=== PATIENT | female | born 1940 | race Caucasian/White ===

== ENCOUNTER 2018-09-05 20:30 | Emergency (ER) | payer OTHER ==
--- OUTSIDE RECORDS SUMMARY | 2018-09-05 20:32 | XMS REPORT | Clinical Summary ---
:1940 Author Organization [facility] Address [address] [place] [id number] Care Team Providers Name Role Phone Asked, No Pcp Primary Care Provider Unavailable Allergies Active Allergy Reactions Severity Noted Date Comments Codeine GI Intolerance 09/07/2015 Meperidine GI Intolerance 09/07/2015 Penicillins GI Intolerance 09/07/2015 Medications Medication Sig Dispensed Refills Start Date End Date Status amLODIPine (NORVASC) 10 MG TK 1 T PO 0 11/14/2015 Active tablet QD levothyroxine (SYNTHROID, TK 1 T PO QD 2 11/14/2015 Active LEVOTHROID) 88 MCG tablet lisinopril-hydrochlorothiazi TK 1 T PO QD 1 11/14/2015 Active de (PRINZIDE,ZESTORETIC) 20-25 mg per tablet methylPREDNISolone (MEDROL TK UTD 0 08/30/2015 Active DOSEPACK) 4 mg tablet rosuvastatin (CRESTOR) 10 MG TK 1 T PO QD 1 11/14/2015 Active tablet Active Problems Problem Noted Date History of lumbar surgery 03/27/2016 Neurogenic claudication due to lumbar spinal stenosis 12/06/2015 Cervical spondylosis with radiculopathy 12/06/2015 Lumbar back pain with radiculopathy affecting right lower extremity 08/30/2015 Overview: Problem: Right greater than left upper extremity radiculopathy Plan: Recommend a trial of methylprednisolone. Follow with nonsteroidal anti- inflammatory medication as needed. Prescription for physical therapy. See back in a few weeks. Family History Medical History Relation Name Comments No Known Problems Father Cancer Mother Diabetes Mother Heart disease Mother Hypertension Mother Thyroid disease Mother Relation Name Status Comments Father Alive Mother Social History Tobacco Use Types Packs/Day Years Used Date Never Smoker Alcohol Use Drinks/Week oz/Week Comments Yes 3 Standard drinks or equivalent 1.8 Sex Assigned at Date Recorded Not on file Job Start Date Occupation Industry Not on file Not on file Not on file Travel History Travel Start Travel End No recent travel history available. Last Filed Vital Signs Not on file Plan of Treatment Health Maintenance Due Date Last Done Comments SHINGLES VACCINES (#1) 11/11/1989 65+ PNEUMOCOCCAL VACCINE (1 of 2 - PCV13) 11/11/2004 INFLUENZA VACCINE 10/01/2018 Results Not on fileafter 09/04/2017 Advance Directives Patient has advance care planning documents on file. For more information, please contact:Huber [id number] [place] [address]
[2018-09-05] MEDS ORDERED: ONDANSETRON 4 MG/2 ML VIAL ONE ×2 (21:23→23:12)
[2018-09-05] MEDS ORDERED: MORPHINE 2 MG/ML SYR ONE ×2 (21:23→23:32)
[2018-09-05 21:24] LABS: Absolute Lymphocytes (CBC) 2.2 K/uL (0.7-4.9); Basophils % 0.8 % (0-1.3); Eosinophils % 0.4 % (0-4.4); Hematocrit 44.6 % (36.0-45.0); Lymphocytes % 14.8 % (15.3-44.8); MPV 8.6 fL (7.6-11.3); Monocytes % 8.2 % (3.3-12.3); RBC Red Blood Cell Count 5.01 M/uL (3.86-4.86)
[2018-09-05] MEDS ORDERED: NA CHLORIDE 0.9% 500 ML ONE (21:24)
[2018-09-05] MEDS ORDERED: NA CHLORIDE 0.9% 1,000 ML ONE (21:24)
[2018-09-05 21:47] LABS: Potassium 4.1 mmol/L (3.5-5.1)
--- NOTE | 2018-09-05 23:29 | ER ---
Nurse's Notes [facility] Name: Debbie Birch Age: 77 yrs Sex: Female : 1940 Arrival Date: 09/05/2018 Time: 20:31 Bed 6 Private MD: Gabriella Moran Diagnosis: Chronic back pain. Possible prolapsed intervertebral disc. Vomiting Presentation: 09/05 20:30 Presenting complaint: Patient states: that she has been having nausea and vomiting all fc day. Also having right back and right thigh pain which started some time back but worse today. Has seen PCP for this and rec'd steroid injection and Medrol dose pack which pt is taking currently. Also on Nystatin for thrush. Transition of care: patient was not received from another setting of care. Onset of symptoms was September 05, 2018. Risk Assessment: Do you want to hurt yourself or someone else? Patient reports no desire to harm self or others. Initial Sepsis Screen: Does the patient meet any 2 criteria? No. Patient's initial sepsis screen is negative. Does the patient have a suspected source of infection? No. Patient's initial sepsis screen is negative. Care prior to arrival: None. 20:30 Method Of Arrival: Wheelchair fc 20:30 Acuity: BILL 3 fc Historical: - Allergies: 20:45 PENICILLINS; fc 20:45 Codeine; fc 20:45 Demerol; fc - Home Meds: 20:45 lisinopril-hydrochlorothiazide 20-12.5 mg oral tab 2 tab once daily [Active]; meloxicam fc 15 mg oral tab 1 tab once daily [Active]; levothyroxine 88 mcg tab 1 tab once daily [Active]; rosuvastatin 10 mg oral tab 1 tab nightly [Active]; Robaxin 500 mg Oral tab 1 tabs three times a day [Active]; gabapentin 300 mg oral cap 1 cap 3 times per day [Active]; doxazosin 1 mg oral tab prn sbp > 150/90 [Active]; - PMHx: 20:45 Hypertension; High Cholesterol; Back pain; Hypothyroidism; Arthritis; fc - PSHx: 20:45 back surg x 2; fc - Immunization history:: Last tetanus immunization: unknown. - Social history:: Smoking status: Patient/guardian denies using tobacco, Patient uses alcohol, occasionally. - Ebola Screening: : Patient negative for fever greater than or equal to 101.5 degrees Fahrenheit, and additional compatible Ebola Virus Disease symptoms Patient denies exposure to infectious person Patient denies travel to an Ebola-affected area in the 21 days before illness onset. Screenin:30 Abuse screen: Denies threats or abuse. Nutritional screening: No deficits noted. fc Tuberculosis screening: No symptoms or risk factors identified. Assessment: 20:44 General: Appears in no apparent distress. comfortable. Pain: Complains of pain in right ch low back, right hip, right upper thigh and right quadriceps Pain currently is 10 out of 10 on a pain scale. Neuro: No deficits noted. Respiratory: Airway is patent Respiratory effort is even, unlabored, Breath sounds are clear bilaterally. GI: Abdomen is round non-distended, Pt is actively vomiting undigested food, Bowel sounds present X 4 quads. Abd is soft and non tender X 4 quads. Reports nausea, vomiting. : No signs and/or symptoms were reported regarding the genitourinary system. EENT: No signs and/or symptoms were reported regarding the EENT system. Derm: Skin is fragile, is thin, with poor turgor Skin is pink, warm \T\ dry. Musculoskeletal: Capillary refill < 3 seconds, in bilateral fingers. Range of motion: limited in right hip pt states she has chronic pain in her R hip. 21:29 Reassessment: Patient appears in no apparent distress at this time. Patient and/or ch family updated on plan of care and expected duration. Pain level reassessed. Patient is alert, oriented x 3, equal unlabored respirations, skin warm/dry/pink. pt stops vomiting, states she feels a little better. 23:12 Reassessment: Patient appears in no apparent distress at this time. Patient and/or ch family updated on plan of care and expected duration. Pain level reassessed. Patient is alert, oriented x 3, equal unlabored respirations, skin warm/dry/pink. pt c/o increase in pain and increase in nausea. ekg performed, urine dip, pt will be medicated again. 23:34 Reassessment: Patient appears in no apparent distress at this time. Patient and/or ch family updated on plan of care and expected duration. Pain level reassessed. Patient is alert, oriented x 3, equal unlabored respirations, skin warm/dry/pink. pt brief changed. 23:51 Reassessment: Patient appears in no apparent distress at this time. Patient and/or ch family updated on plan of care and expected duration. Pain level reassessed. Patient is alert, oriented x 3, equal unlabored respirations, skin warm/dry/pink. pt medicated for nausea, awaiting discharge. Vital Signs: 20:30 BP 164 / 77; Pulse 77; Resp 18; Temp 99.3(O); Pulse Ox 99% on R/A; Weight 58.97 kg (R); fc Height 5 ft. 1 in. (154.94 cm) (R); Pain 10/10; 21:29 BP 152 / 78; Pulse 72; Resp 16; Temp 98.8; Pulse Ox 99% on R/A; Pain 0/10; ch 23:12 BP 150 / 89; Pulse 80; Resp 14; Temp 98.8; Pulse Ox 99% on R/A; Pain 6/10; ch 23:51 BP 162 / 78; Pulse 72; Resp 14; Temp 98.7; Pulse Ox 99% on R/A; Pain 5/10; ch 20:30 Body Mass Index 24.56 (58.97 kg, 154.94 cm) ED Course: 20:30 Arm band placed on Patient placed in an exam room, on a stretcher. fc 20:30 Patient has correct armband on for positive identification. Placed in gown. Bed in low fc position. Call light in reach. Side rails up X2. surveillance system monitor on. Pulse ox on. NIBP on. 20:30 No provider procedures requiring assistance completed. fc 20:31 Patient arrived in ED. am2 20:31 Trav Mathias MD is Attending Physician. pkl 20:31 Gabriella Moran MD is Private Physician. am2 20:41 Triage completed. fc 20:43 Chata Wagoner, RN is Primary Nurse. ch 21:21 Initial lab(s) drawn, by ia, sent to lab. Inserted saline lock: 24 gauge in left ak1 forearm, using aseptic technique. Blood collected. 23:51 No apparent distress. Resting quietly. ch 23:51 IV discontinued, intact, bleeding controlled, No redness/swelling at site. Pressure ch dressing applied. 09/06 01:32 Primary Nurse role handed off by Chata Wagoner RN ch Administered Medications: 09/05 21:28 Drug: NS 0.9% 500 ml Route: IV; Rate: bolus; Site: left forearm; ch 21:28 Drug: NS 0.9% 1000 ml Route: IV; Rate: 100 ml/hr; Site: left forearm; ch 21:28 Drug: morphine 2 mg Route: IVP; Site: left forearm; ch 23:35 Follow up: Response: No adverse reaction ch 21:28 Drug: Zofran 4 mg Route: IVP; Site: left forearm; ch 23:35 Follow up: Response: No adverse reaction; Marked relief of symptoms ch 23:15 Drug: morphine 2 mg Route: IVP; Site: left forearm; ch 23:35 Follow up: Response: No adverse reaction ch 23:15 Drug: Zofran 4 mg Route: IVP; Site: left antecubital; ch 23:35 Follow up: Response: No adverse reaction; No change in condition ch 23:45 Drug: Phenergan 25 mg Route: IM; Site: right gluteus; Outcome: 23:29 Discharge ordered by MD. henley 09/06 00:00 Discharged to home via wheelchair, with family. Condition: improved Discharge instructions given to patient, family, Instructed on discharge instructions, follow up and referral plans. medication usage, Demonstrated understanding of instructions, follow-up care, medications, Prescriptions given X 2. 00:05 Patient left the ED. mt 01:33 Patient left the ED. Signatures: Chata Wagoner RN RN ch Lam, Pin, MD MD pkl Chretien, Felicia, RN RN fc Krenek, Amber, RN RN ak1 Moreno, Amanda am2 Thompson, Moriah mt
--- NOTE | 2018-09-05 23:29 | EDPHYS ---
Physician Documentation [facility] Name: Debbie Birch Age: 77 yrs Sex: Female : 1940 Arrival Date: 09/05/2018 Time: 20:31 Bed 6 Private MD: Gabriella Moran ED Physician Trav Mathias HPI: 09/05 20:55 This 77 yrs old Female presents to ER via Wheelchair with complaints of pkl Vomiting. 20:55 The patient presents with pain that is chronic. The symptoms are located in the low pkl back. Onset: The symptoms/episode began/occurred 1 week(s) ago, Saw PCP, given steroid injection and Medrol dose pack. Patient started nausea and vomiting today. Historical: - Allergies: 20:45 PENICILLINS; fc 20:45 Codeine; fc 20:45 Demerol; fc - Home Meds: 20:45 lisinopril-hydrochlorothiazide 20-12.5 mg oral tab 2 tab once daily [Active]; meloxicam fc 15 mg oral tab 1 tab once daily [Active]; levothyroxine 88 mcg tab 1 tab once daily [Active]; rosuvastatin 10 mg oral tab 1 tab nightly [Active]; Robaxin 500 mg Oral tab 1 tabs three times a day [Active]; gabapentin 300 mg oral cap 1 cap 3 times per day [Active]; doxazosin 1 mg oral tab prn sbp > 150/90 [Active]; - PMHx: 20:45 Hypertension; High Cholesterol; Back pain; Hypothyroidism; Arthritis; fc - PSHx: 20:45 back surg x 2; fc - Immunization history:: Last tetanus immunization: unknown. - Social history:: Smoking status: Patient/guardian denies using tobacco, Patient uses alcohol, occasionally. - Ebola Screening: : Patient negative for fever greater than or equal to 101.5 degrees Fahrenheit, and additional compatible Ebola Virus Disease symptoms Patient denies exposure to infectious person Patient denies travel to an Ebola-affected area in the 21 days before illness onset. ROS: 21:24 Eyes: Negative for injury, pain, redness, and discharge, ENT: Negative for injury, pkl pain, and discharge, Neck: Negative for injury, pain, and swelling, Cardiovascular: Negative for chest pain, palpitations, and edema, Respiratory: Negative for shortness of breath, cough, wheezing, and pleuritic chest pain. 21:24 Abdomen/GI: Positive for nausea and vomiting. 21:24 Back: Positive for pain with movement, of the lower back. 21:24 : Negative for urinary symptoms. 21:24 MS/extremity: Negative for pain, right thigh. 21:24 Skin: Negative for rash. 21:24 Neuro: Negative for altered mental status. Exam: 21:24 Head/Face: Normocephalic, atraumatic. Eyes: Pupils equal round and reactive to light, pkl extra-ocular motions intact. Lids and lashes normal. Conjunctiva and sclera are non-icteric and not injected. Cornea within normal limits. Periorbital areas with no swelling, redness, or edema. ENT: Nares patent. No nasal discharge, no septal abnormalities noted. Tympanic membranes are normal and external auditory canals are clear. Oropharynx with no redness, swelling, or masses, exudates, or evidence of obstruction, uvula midline. Mucous membranes moist. Neck: Trachea midline, no thyromegaly or masses palpated, and no cervical lymphadenopathy. Supple, full range of motion without nuchal rigidity, or vertebral point tenderness. No Meningismus. Chest/axilla: Normal chest wall appearance and motion. Nontender with no deformity. No lesions are appreciated. Cardiovascular: Regular rate and rhythm with a normal S1 and S2. No gallops, murmurs, or rubs. Normal PMI, no JVD. No pulse deficits. Respiratory: Lungs have equal breath sounds bilaterally, clear to auscultation and percussion. No rales, rhonchi or wheezes noted. No increased work of breathing, no retractions or nasal flaring. Abdomen/GI: Soft, non-tender, with normal bowel sounds. No distension or tympany. No guarding or rebound. No evidence of tenderness throughout. 21:24 Back: pain, that is moderate, of the lower back, Straight leg raises: right lower extremity illicits pain, at 30 degrees. 21:24 : Exam negative for acute changes. 21:24 Musculoskeletal/extremity: Exam is negative for acute changes. 21:24 Skin: Exam negative for rash. 21:24 Neuro: Orientation: appropriate for stated age, Mentation: is normal, Cranial nerves: grossly normal, Motor: is normal. Vital Signs: 20:30 BP 164 / 77; Pulse 77; Resp 18; Temp 99.3(O); Pulse Ox 99% on R/A; Weight 58.97 kg (R); fc Height 5 ft. 1 in. (154.94 cm) (R); Pain 10/10; 21:29 BP 152 / 78; Pulse 72; Resp 16; Temp 98.8; Pulse Ox 99% on R/A; Pain 0/10; ch 23:12 BP 150 / 89; Pulse 80; Resp 14; Temp 98.8; Pulse Ox 99% on R/A; Pain 6/10; ch 23:51 BP 162 / 78; Pulse 72; Resp 14; Temp 98.7; Pulse Ox 99% on R/A; Pain 5/10; ch 20:30 Body Mass Index 24.56 (58.97 kg, 154.94 cm) fc MDM: 20:31 Patient medically screened. pkl 23:27 Data reviewed: vital signs, nurses notes, lab test result(s). pk 09/05 20:53 Order name: CBC with Diff; Complete Time: 21:55 pkl 09/05 20:53 Order name: Chem 7; Complete Time: 21:55 pk 09/05 23:11 Order name: Urine Microscopic Only; Complete Time: 01:31 mt 09/05 23:12 Order name: Urine Dipstick--Ancillary (enter results) wi 09/05 23:44 Order name: Urine Culture [facility] 09/05 23:14 Order name: EKG; Complete Time: 23:20 09/05 23:14 Order name: EKG - Nurse/Tech; Complete Time: 23:16 ch Administered Medications: 21:28 Drug: NS 0.9% 500 ml Route: IV; Rate: bolus; Site: left forearm; ch 21:28 Drug: NS 0.9% 1000 ml Route: IV; Rate: 100 ml/hr; Site: left forearm; ch 21:28 Drug: morphine 2 mg Route: IVP; Site: left forearm; ch 23:35 Follow up: Response: No adverse reaction ch 21:28 Drug: Zofran 4 mg Route: IVP; Site: left forearm; ch 23:35 Follow up: Response: No adverse reaction; Marked relief of symptoms ch 23:15 Drug: morphine 2 mg Route: IVP; Site: left forearm; ch 23:35 Follow up: Response: No adverse reaction 23:15 Drug: Zofran 4 mg Route: IVP; Site: left antecubital; ch 23:35 Follow up: Response: No adverse reaction; No change in condition 23:45 Drug: Phenergan 25 mg Route: IM; Site: right gluteus; ch Disposition: 09/05/18 23:29 Discharged to Home. Impression: Chronic back pain. Possible prolapsed intervertebral disc. Vomiting. - Condition is Stable. - Prescriptions for Zofran 4 mg Oral Tablet - take 1 tablet by ORAL route every 8 hours As needed; 12 tablet. Ultram 50 mg Oral Tablet - take 1 tablet by ORAL route every 6 hours As needed; 12 tablet. - Medication Reconciliation Form, Thank You Letter, Antibiotic Education, Prescription Opioid Use form. - Follow up: Private Physician; When: 2 - 3 days; Reason: Re-evaluation by your physician. - Problem is new. - Symptoms have improved. Signatures: Dispatcher [employer] [facility] Chata Wagoner RN RN ch Lam, Pin, MD MD pkl Chretien, Felicia, RN RN Sung [facility] Corrections: (The following items were deleted from the chart) 23:45 21:57 URINALYSIS+U.LAB.BRZ ordered. [facility] 09/06 00:05 07 23:29 09/05/2018 23:29 Discharged to Home. Impression: Chronic back pain. mt Possible prolapsed intervertebral disc. Vomiting. Condition is Stable. Forms are Medication Reconciliation Form, Thank You Letter, Antibiotic Education, Prescription Opioid Use. Follow up: Private Physician; When: 2 - 3 days; Reason: Re-evaluation by your physician. Problem is new. Symptoms have improved. [facility] 09/06 01:33 00:05 09/05/2018 23:29 Discharged to Home. Impression: Chronic back pain. Possible ch prolapsed intervertebral disc. Vomiting. Condition is Stable. Prescriptions for Zofran 4 mg Oral Tablet - take 1 tablet by ORAL route every 8 hours As needed; 12 tablet, Ultram 50 mg Oral Tablet - take 1 tablet by ORAL route every 6 hours As needed; 12 tablet. and Forms are Medication Reconciliation Form, Thank You Letter, Antibiotic Education, Prescription Opioid Use. Follow up: Private Physician; When: 2 - 3 days; Reason: Re-evaluation by your physician. Problem is new. Symptoms have improved. mt
[2018-09-05 23:42] LABS: Urine Culture Reflex Order REFLEXED
[2018-09-05 23:43] LABS: Urine Bacteria <20 /HPF (<20); Urine RBC <5 /HPF (NONE SEEN)
[2018-09-05] MEDS ORDERED: PROMETHAZINE 25 MG/ML VIAL ONE (23:58)
[2018-09-06 04:25] LABS: Urine Blood NEGATIVE (NEG); Urine Glucose NEGATIVE (NEG); Urine Protein NEGATIVE (NEG)
--- NOTE | 2018-09-06 08:42 | EKG ---
Test Date: 2018-09-05 Test Time: 23:02:35 Elevator Inspector: VIKTORIYA MEASUREMENT RESULTS: Intervals: Rate: 72 OH: 144 QRSD: 88 QT: 412 QTc: 451 [place]: P: 47 OH: 144 QRS: 36 T: 70 INTERPRETIVE STATEMENTS: Normal sinus rhythm Normal ECG No previous ECG available for comparison Electronically Signed On 09-06-18 08:41:07 CDT by Waldemar Carreno
--- NOTE | 2018-09-06 08:42 | EKG ---
Test Date: 2018-09-05 Test Time: 23:03:07 Knitting Machine Fixer Head: VIKTORIYA MEASUREMENT RESULTS: Intervals: Rate: 74 WV: 148 QRSD: 90 QT: 408 QTc: 452 [place]: P: 46 WV: 148 QRS: 36 T: 66 INTERPRETIVE STATEMENTS: Normal sinus rhythm Normal ECG Compared to ECG 09/05/2018 23:02:35 No significant changes Electronically Signed On 09-06-18 08:41:05 CDT by Waldemar Carreno
== END 2018-09-06 01:33 | disposition home or self-care (01) ==
LOC: ER 20:30
DX: M54.5 Low back pain (principal); R11.10 Vomiting, unspecified; I10 Essential (primary) hypertension; E78.00 Pure hypercholesterolemia, unspecified; E03.9 Hypothyroidism, unspecified; Z88.5 Allergy status to narcotic agent; Z88.0 Allergy status to penicillin
CPT/HCPCS: 93005 ×2; 87088; 85025; 87086; 80048; 36415; 96372; 99284; J2550; J2270 ×2; J7030; J2405 ×2; 81003; 81015

== ENCOUNTER 2018-09-06 12:48 | Emergency (ER) | payer OTHER ==
--- OUTSIDE RECORDS SUMMARY | 2018-09-06 12:50 | XMS REPORT | Clinical Summary ---
:1940 Author Organization [facility] Address [address] [place] [id number] Care Team Providers Name Role Phone Asked, [...] INFLUENZA VACCINE 10/01/2018 Results Not on fileafter 09/05/2017 Advance Directives Patient has advance care planning documents on file. For more information, please contact:Huber [id number] [place] [address]
[2018-09-06] MEDS ORDERED: LIDOCAINE 5% PATCH TD SCH (14:00)
[2018-09-06] MEDS ORDERED: PROMETHAZINE 25 MG/ML VIAL ONE (14:05)
[2018-09-06] MEDS ORDERED: NA CHLORIDE 0.9% 500 ML ONE (14:06)
[2018-09-06] MEDS ORDERED: MORPHINE 4 MG/ML SYR ONE (14:06)
[2018-09-06 14:13] LABS: Absolute Lymphocytes (CBC) 1.3 K/uL (0.7-4.9); Basophils % 0.3 % (0-1.3); Eosinophils % 0.1 % (0-4.4); Hematocrit 45.6 % (36.0-45.0); Lymphocytes % 5.7 % (15.3-44.8); MPV 8.5 fL (7.6-11.3); Monocytes % 6.6 % (3.3-12.3); RBC Red Blood Cell Count 5.21 M/uL (3.86-4.86)
[2018-09-06 14:25] LABS: Albumin 4.8 g/dL (3.4-5.0); Bilirubin Direct 0.2 mg/dL (0-0.2); Bilirubin Total 0.7 mg/dL (0.2-1.0); Potassium 3.7 mmol/L (3.5-5.1); Protein, Total 8.9 g/dL (6.4-8.2)
--- NOTE | 2018-09-06 15:28 | RAD REPORT ---
EXAM DESCRIPTION: CT - Abdomen Pelvis W Contrast - 09/06/2018 2:58 pm CLINICAL HISTORY: Abdominal pain and vomiting COMPARISON: None. TECHNIQUE: Biphasic, helical CT imaging of the abdomen and pelvis was performed following 100 ml non -ionic IV contrast. No oral contrast. All CT scans are performed using dose optimization technique as appropriate and may include automated exposure control or mA/KV adjustment according to patient size. FINDINGS: Fibrotic changes are present in each lung base. No acute lung parenchymal finding. No josé cardial thickening or effusion. Liver is borderline or mildly fatty infiltrated. No suspicious liver parenchymal lesion. Spleen and p ancreas show no suspicious findings. Numerous gallstones are present. No gallbladder wall thickening, edema or other finding to suspect active gallbladder disease. No biliary tree dilatation. Symmetric renal function is seen with no hydronephrosis or suspicious renal mass. No pyelonephritis o r acute parenchymal process. Bilateral renal cysts are present. No urinary bladder abnormality. Uteru s is absent. Ovaries are absent or atrophic. No adnexal mass. No adrenal abnormalities. Fluid is present within a nondilated stomach. No gastric wall thickening, mass or gastric wall edema seen. No dilated large or small bowel loops. Diverticulosis is minimal in the left side. No appendici tis findings. No free air, free fluid or inflammatory stranding. No hernia, mass or bulky lymphadenopathy. Disc and bony degenerative changes are present. There is right scoliotic curvature. Partial compress ion of T12 is believed to be chronic IMPRESSION: No bowel obstruction, free air or surgically emergent finding. Fluid-filled stomach shows no acute process. Multi stone cholelithiasis. No CT findings for acute gallbladder, biliary tree or pancreatic process. Mild or borderline fatty infiltration of the liver.
[2018-09-06 15:51] LABS: Blood Morphology Comment NOT SEEN (NOT SEEN); Platelet Estimate ADEQ
[2018-09-06 16:01] LABS: Urine Bacteria <20 /HPF (<20); Urine Culture Reflex Order NOT NEEDED; Urine RBC <5 /HPF (NONE SEEN)
[2018-09-06 16:11] LABS: Urine Blood 1+ (NEG); Urine Glucose NEGATIVE (NEG); Urine Protein 3+ (NEG)
--- NOTE | 2018-09-06 16:30 | RAD REPORT ---
EXAM DESCRIPTION: US - Abdomen Exam Limited - 09/06/2018 3:44 pm CLINICAL HISTORY: Abdominal pain COMPARISON: CT study September 06 FINDINGS: Gallbladder size is normal. Multiple gallstones are present layering in the dependent port ion of the gallbladder. No wall thickening or biliary tree dilatation. Common bile duct is normal with no common duct stone identified. IMPRESSION: Multi stone cholelithiasis with no wall thickening or pericholecystic fluid. No biliary tree abnormality.
--- NOTE | 2018-09-06 16:57 | EDPHYS ---
Physician Documentation [facility] Name: Debbie Birch Age: 77 yrs Sex: Female : 1940 Arrival Date: 09/06/2018 Time: 12:50 Bed 16 Private MD: Gabriella Moran ED Physician Soila Odell HPI: 09/06 13:33 This 77 yrs old Female presents to ER via Wheelchair with complaints of pm1 Vomiting, Abdominal Pain. 13:33 The patient presents to the emergency department with nausea, vomiting, abdominal pain, pm1 of the suprapubic area, right lower back. Onset: The symptoms/episode began/occurred and became worse 1 week(s) ago. Possible causes: Patient attributes to possible herniated disk. The symptoms are aggravated by nothing. The symptoms are alleviated by nothing. Associated signs and symptoms: Pertinent positives: abdominal pain, nausea, vomiting, Pertinent negatives: constipation, diarrhea, dysuria, fever. Severity of symptoms: in the emergency department the symptoms are worse. The patient has been recently seen at the [facility] Emergency Department, today, for similar complaints labs were performed, told that she needs outpatient follow up for MRI back. Historical: - Allergies: 12:52 Codeine; la1 12:52 Demerol; la1 12:52 PENICILLINS; la1 - PMHx: 12:52 Arthritis; Back pain; High Cholesterol; Hypertension; Hypothyroidism; la1 - Immunization history:: Adult Immunizations up to date. - Social history:: Smoking status: Patient/guardian denies using tobacco. - Ebola Screening: : No symptoms or risks identified at this time. ROS: 13:33 Constitutional: Negative for fever, chills, and weight loss, Eyes: Negative for injury, pm1 pain, redness, and discharge, ENT: Negative for injury, pain, and discharge, Neck: Negative for injury, pain, and swelling, Cardiovascular: Negative for chest pain, palpitations, and edema, Respiratory: Negative for shortness of breath, cough, wheezing, and pleuritic chest pain. 13:33 : Negative for injury, bleeding, discharge, and swelling, MS/Extremity: Negative for injury and deformity, Skin: Negative for injury, rash, and discoloration. 13:33 Abdomen/GI: Positive for abdominal pain, nausea and vomiting, of the suprapubic area, Negative for diarrhea, constipation. 13:33 Back: Positive for of the right low back, radiating down right leg. 13:33 Neuro: Negative for headache, numbness, weakness. Exam: 13:33 Constitutional: This is a well developed, well nourished patient who is awake, alert, pm1 and in no acute distress. Head/Face: Normocephalic, atraumatic. Eyes: Pupils equal round and reactive to light, extra-ocular motions intact. Lids and lashes normal. Conjunctiva and sclera are non-icteric and not injected. Cornea within normal limits. Periorbital areas with no swelling, redness, or edema. ENT: Nares patent. No nasal discharge, no septal abnormalities noted. Tympanic membranes are normal and external auditory canals are clear. Oropharynx with no redness, swelling, or masses, exudates, or evidence of obstruction, uvula midline. Mucous membranes moist. Neck: Trachea midline, no thyromegaly or masses palpated, and no cervical lymphadenopathy. Supple, full range of motion without nuchal rigidity, or vertebral point tenderness. No Meningismus. Chest/axilla: Normal chest wall appearance and motion. Nontender with no deformity. No lesions are appreciated. Cardiovascular: Regular rate and rhythm with a normal S1 and S2. No gallops, murmurs, or rubs. Normal PMI, no JVD. No pulse deficits. Respiratory: Lungs have equal breath sounds bilaterally, clear to auscultation and percussion. No rales, rhonchi or wheezes noted. No increased work of breathing, no retractions or nasal flaring. 13:33 Skin: Warm, dry with normal turgor. Normal color with no rashes, no lesions, and no evidence of cellulitis. MS/ Extremity: Pulses equal, no cyanosis. Neurovascular intact. Full, normal range of motion. 13:33 Abdomen/GI: Inspection: abdomen appears normal, Bowel sounds: normal, Palpation: mild abdominal tenderness, in the suprapubic area and right upper quadrant, mass, is not appreciated, rebound tenderness, is not appreciated. 13:33 Back: pain, that is mild, of the right low back, scoliosis vertebral tenderness, is not appreciated. Vital Signs: 12:53 Pulse 106; Resp 16; Temp 98.1(O); Pulse Ox 100% on R/A; Weight 58.97 kg; Pain 10/10; la1 12:56 BP 177 / 80; la1 14:00 BP 170 / 97; Pulse 88; Resp 18; Pulse Ox 97% on R/A; Pain 10/10; em 15:20 BP 154 / 81; Pulse 93; Resp 18; Pulse Ox 98% on 2 lpm NC; em 16:30 BP 178 / 73; Pulse 87; Resp 18; Pulse Ox 97% on 2 lpm NC; Pain 10/10; em 17:22 BP 159 / 79; Pulse 87; Resp 16; Pulse Ox 95% on 2 lpm NC; em 19:05 BP 154 / 75; Pulse 87; Resp 18; Pulse Ox 95% on 2 lpm NC; jb4 20:00 BP 145 / 75; Pulse 83; Resp 18; Pulse Ox 96% on 2 lpm NC; jb4 21:00 BP 149 / 76; Pulse 88; Resp 18; Temp 98.7(O); Pulse Ox 96% on 2 lpm NC; jb4 22:00 BP 161 / 86; Pulse 90; Resp 18; Pulse Ox 97% on 2 lpm NC; jb4 MDM: 13:19 Patient medically screened. pm1 13:32 Data reviewed: vital signs. Data interpreted: Pulse oximetry: on room air is 100 %. pm1 Interpretation: normal. 16:40 Counseling: I had a detailed discussion with the patient and/or guardian regarding: the pm1 historical points, exam findings, and any diagnostic results supporting the discharge/admit diagnosis, lab results, radiology results, the need for further work-up and treatment in the hospital. 16:43 Physician consultation: Jan Martinez DO was called at 16:43, was contacted at 16:43, pm1 regarding admission, patient's condition, consult with Dr. Ignacio since GI not available. 16:49 Physician consultation: Jomar Ignacio MD was called at 16:49, was contacted at 16:49, pm1 regarding consult, patient's condition, after a discussion of the case, a recommendation for transfer for higher level of care is made, due to lack of GI coverage. 16:55 Counseling: I had a detailed discussion with the patient and/or guardian regarding: the pm1 historical points, exam findings, and any diagnostic results supporting the discharge/admit diagnosis, lab results, radiology results, the need to transfer to another facility, [facility] does not immediately have the required specialist. 16:55 ED course: Patient would like to be transferred to [facility]. Preference due pm1 to back surgery performed there and the care she received . 09/06 13:33 Order name: Basic Metabolic Panel pm1 09/06 13:33 Order name: CBC with Diff; Complete Time: 15:56 pm1 09/06 13:33 Order name: Creatinine for Radiology; Complete Time: 14:35 pm1 09/06 13:33 Order name: Hepatic Function; Complete Time: 14:35 pm1 09/06 13:33 Order name: Lipase; Complete Time: 14:35 pm1 09/06 13:34 Order name: Basic Metabolic Panel; Complete Time: 14:35 EDMS 09/06 13:33 Order name: CT Abd/Pelvis - IV Contrast Only; Complete Time: 15:34 pm1 09/06 14:39 Order name: Procalcitonin; Complete Time: 15:56 pm1 09/06 14:39 Order name: Lactate; Complete Time: 15:56 pm1 09/06 14:39 Order name: US Abdomen Limited; Complete Time: 16:35 pm1 09/06 14:42 Order name: Blood Culture Adult (2) pm1 09/06 15:36 Order name: Urine Microscopic Only; Complete Time: 16:14 pm1 09/06 15:51 Order name: Manual Differential; Complete Time: 15:56 EDMS 09/06 16:08 Order name: Urine Dipstick--Ancillary (enter results); Complete Time: 16:14 eb 09/06 13:33 Order name: IV Saline Lock; Complete Time: 14:17 pm09/06 13:33 Order name: Labs collected and sent; Complete Time: 14:17 pm1 09/06 14:39 Order name: NPO; Complete Time: 15:08 pm1 09/06 14:42 Order name: Urine Dipstick-Ancillary (obtain specimen); Complete Time: 16:11 pm1 Administered Medications: 14:02 Drug: NS 0.9% 500 ml Route: IV; Rate: bolus; Site: right antecubital; em 15:30 Follow up: IV Intake: 500ml em 14:08 Drug: Phenergan 12.5 mg Route: IVP; Site: left forearm; iw 15:07 Follow up: Response: No adverse reaction; Nausea is decreased em 14:10 Drug: morphine 4 mg Route: IVP; Site: left forearm; iw 14:30 Follow up: Response: No adverse reaction; Pain is decreased em 14:13 Drug: lidocaine 5% patch 1 patches {Note: right lower back.} Route: Topical; Site: em affected area; 17:10 Drug: NS 0.9% 1000 ml Route: IV; Rate: 100 ml/hr; Site: left forearm; iw 22:34 Follow up: Response: No adverse reaction; IV Status: Infusion continued upon transfer; jb4 IV Intake: 850ml 17:10 Drug: Zofran 4 mg Route: IVP; Site: left forearm; iw 17:30 Follow up: Response: No adverse reaction; Nausea is decreased em 20:40 Drug: Zofran 4 mg Route: IVP; Site: left forearm; jb4 21:11 Follow up: Response: No adverse reaction; Pain is decreased jb4 20:42 Drug: morphine 2 mg Route: IVP; Site: left forearm; jb4 21:11 Follow up: Response: No adverse reaction; Pain is decreased jb4 20:45 Drug: Flagyl 500 mg Volume: 100 ml; Route: IVPB; Rate: 200 ml/hr; Infused Over: 30 jb4 mins; Site: left forearm; 21:15 Follow up: Response: No adverse reaction; IV Status: Completed infusion; IV Intake: jb4 100ml 20:46 Drug: LevaQUIN 500 mg Volume: 100 ml; Route: IVPB; Infused Over: 60 mins; Site: left jb4 forearm; 21:46 Follow up: Response: No adverse reaction; IV Status: Completed infusion; IV Intake: jb4 100ml 22:00 Drug: morphine 2 mg Route: IVP; Site: left forearm; jb4 22:25 Follow up: Response: No adverse reaction; Pain is decreased jb4 Disposition: 09/06/18 16:57 Transfer ordered to Other Acute Care Facility. Diagnosis is Gallstone pancreatitis. - Reason for transfer: Specialty. - Accepting physician is [facility]. - Condition is Stable. - Problem is new. - Symptoms have improved. Addendum: 09/10/2018 02:13 Co-signature as Attending Physician, Soila tripathi a2 Signatures: Dispatcher [employer] EDMS Ferraro, Efren, WOOD FURNITURE ASSEMBLER WOOD FURNITURE ASSEMBLER em Elidia Quintero, RN RN iw Rashaad Kc, RN RN la1 Julius Mandel, VICE PRESIDENT MEDICAL AFFAIRS VICE PRESIDENT MEDICAL AFFAIRS pm1 Perry Guzman, RN RN jb4 Soila Odell MD MD ma2 Corrections: (The following items were deleted from the chart) 09/06 16:59 13:33 Abdomen/GI: Inspection: abdomen appears normal, Bowel sounds: normal, Palpation: pm1 mild abdominal tenderness, in the suprapubic area, mass, is not appreciated, rebound tenderness, is not appreciated, pm1 20:30 16:57 09/06/2018 16:57 Transfer ordered to Other Acute Care Facility. Diagnosis is pm1 Gallstone pancreatitis. Reason for transfer: Higher level of care. Accepting physician is [facility]. Condition is Stable. Problem is new. Symptoms have improved. pm1 22:35 20:30 09/06/2018 16:57 Transfer ordered to Other Acute Care Facility. Diagnosis is jb4 Gallstone pancreatitis. Reason for transfer: Specialty. Accepting physician is [facility]. Condition is Stable. Problem is new. Symptoms have improved. pm1
--- NOTE | 2018-09-06 16:57 | ER ---
Nurse's Notes [facility] Name: Debbie Birch Age: 77 yrs Sex: Female : 1940 Arrival Date: 09/06/2018 Time: 12:50 Bed 16 Private MD: Gabriella Moran Diagnosis: Gallstone pancreatitis Presentation: 09/06 12:52 Presenting complaint: Patient states: Was admitted yesterday for similar symptoms of la1 abd pain and vomiting, sent home with prescriptions but could not hold them down, actively vomiting in triage. Transition of care: patient was not received from another setting of care. Onset of symptoms was September 06, 2018. Risk Assessment: Do you want to hurt yourself or someone else? Patient reports no desire to harm self or others. Initial Sepsis Screen: Does the patient meet any 2 criteria? No. Patient's initial sepsis screen is negative. Does the patient have a suspected source of infection? No. Patient's initial sepsis screen is negative. Care prior to arrival: None. 12:52 Method Of Arrival: Wheelchair la1 12:52 Acuity: BILL 3 la1 Historical: - Allergies: 12:52 Codeine; la1 12:52 Demerol; la1 12:52 PENICILLINS; la1 - PMHx: 12:52 Arthritis; Back pain; High Cholesterol; Hypertension; Hypothyroidism; la1 - Immunization history:: Adult Immunizations up to date. - Social history:: Smoking status: Patient/guardian denies using tobacco. - Ebola Screening: : No symptoms or risks identified at this time. Screenin:00 Abuse screen: Denies threats or abuse. Nutritional screening: No deficits noted. em Tuberculosis screening: No symptoms or risk factors identified. Fall Risk None identified. Assessment: 13:30 General: Appears in no apparent distress. uncomfortable, Behavior is calm, cooperative. em Pain: Complains of pain in right low back Pain radiates to right leg Pain currently is 10 out of 10 on a pain scale. Pain began 1 day ago. Is continuous. Neuro: Level of Consciousness is awake, alert, obeys commands, Oriented to person, place, time, situation. Cardiovascular: Capillary refill < 3 seconds Patient's skin is warm and dry. Respiratory: Airway is patent Respiratory effort is even, unlabored, Respiratory pattern is regular, symmetrical. GI: Abdomen is flat, Bowel sounds present X 4 quads. Abd is soft and non tender X 4 quads. Reports nausea, vomiting. Derm: Skin is intact, is fragile, Skin is pink, warm \T\ dry. Musculoskeletal: Capillary refill < 3 seconds, Range of motion: intact in all extremities. 14:43 Reassessment: Patient appears in no apparent distress at this time. Patient and/or em family updated on plan of care and expected duration. Pain level reassessed. Patient is alert, oriented x 3, equal unlabored respirations, skin warm/dry/pink. Patient states feeling better. 15:50 Reassessment: Patient appears in no apparent distress at this time. Patient and/or em family updated on plan of care and expected duration. Pain level reassessed. Patient is alert, oriented x 3, equal unlabored respirations, skin warm/dry/pink. ambulated to restroom with assistance from daughter, tolerated well, gave clean catch UA Patient states feeling better. 16:22 Reassessment: provider at bedside. em 17:22 Reassessment: Patient appears in no apparent distress at this time. Patient and/or em family updated on plan of care and expected duration. Pain level reassessed. Patient is alert, oriented x 3, equal unlabored respirations, skin warm/dry/pink. Patient states feeling better. 18:13 Reassessment: resting comfortable with eyes closed, nausea has improved. em 19:05 Reassessment: Patient appears in no apparent distress at this time. Patient and/or jb4 family updated on plan of care and expected duration. Pain level reassessed. Patient is alert, oriented x 3, equal unlabored respirations, skin warm/dry/pink. Pain and nausea worsens with activity. Patient states feeling better. 20:30 Reassessment: Patient appears in no apparent distress at this time. Patient and/or jb4 family updated on plan of care and expected duration. Pain level reassessed. Patient is alert, oriented x 3, equal unlabored respirations, skin warm/dry/pink. PT reports an increase in pain and nausea, provider notified see [facility] for orders. 21:33 Reassessment: Patient appears in no apparent distress at this time. Patient and/or jb4 family updated on plan of care and expected duration. Pain level reassessed. Patient is alert, oriented x 3, equal unlabored respirations, skin warm/dry/pink. Report called to MICHAEL Tucker at [facility] in [facility]. Patient states feeling better. 22:28 Reassessment: Patient appears in no apparent distress at this time. Patient and/or jb4 family updated on plan of care and expected duration. Pain level reassessed. Patient is alert, oriented x 3, equal unlabored respirations, skin warm/dry/pink. PT left ED via EMS stretcher to be transferred to receiving facility, daughter with patient, both verbalized understanding of need for transfer. Patient states feeling better. Vital Signs: 12:53 Pulse 106; Resp 16; Temp 98.1(O); Pulse Ox 100% on R/A; Weight 58.97 kg; Pain 10/10; la1 12:56 BP 177 / 80; la1 14:00 BP 170 / 97; Pulse 88; Resp 18; Pulse Ox 97% on R/A; Pain 10/10; em 15:20 BP 154 / 81; Pulse 93; Resp 18; Pulse Ox 98% on 2 lpm NC; em 16:30 BP 178 / 73; Pulse 87; Resp 18; Pulse Ox 97% on 2 lpm NC; Pain 10/10; em 17:22 BP 159 / 79; Pulse 87; Resp 16; Pulse Ox 95% on 2 lpm NC; em 19:05 BP 154 / 75; Pulse 87; Resp 18; Pulse Ox 95% on 2 lpm NC; jb4 20:00 BP 145 / 75; Pulse 83; Resp 18; Pulse Ox 96% on 2 lpm NC; jb4 21:00 BP 149 / 76; Pulse 88; Resp 18; Temp 98.7(O); Pulse Ox 96% on 2 lpm NC; jb4 22:00 BP 161 / 86; Pulse 90; Resp 18; Pulse Ox 97% on 2 lpm NC; jb4 ED Course: 12:50 Patient arrived in ED. mr 12:50 Gabriella Moran MD is Private Physician. mr 12:51 Arm band placed on left wrist. la1 12:53 Triage completed. la1 13:07 Floridalma Coyle RN is Primary Nurse. ph 13:19 Julius Mandel, JAIME is PHCP. pm1 13:19 Soila Odell MD is Attending Physician. pm1 13:29 Served as a information specialist during rectal exam. em 13:40 Radiology exam delayed due to lab results not completed at this time. (BUN/Creatinine). vm2 14:00 Patient has correct armband on for positive identification. Placed in gown. Bed in low em position. Call light in reach. Pulse ox on. NIBP on. Warm blanket given. 14:00 Initial lab(s) drawn, by me, sent to lab. jb1 14:17 Inserted saline lock: 22 gauge in left forearm, using aseptic technique. Blood jb1 collected. 14:[address] via stretcher. mw3 14:58 CT Abd/Pelvis - IV Contrast Only In Process Unspecified. EDMS 15:44 US Abdomen Limited In Process Unspecified. EDMS 17:00 initiated a transfer with Jesica from [facility]. eb 22:00 Patient transferred, IV remains in place. jb4 Administered Medications: 14:02 Drug: NS 0.9% 500 ml Route: IV; Rate: bolus; Site: right antecubital; em 15:30 Follow up: IV Intake: 500ml em 14:08 Drug: Phenergan 12.5 mg Route: IVP; Site: left forearm; iw 15:07 Follow up: Response: No adverse reaction; Nausea is decreased em 14:10 Drug: morphine 4 mg Route: IVP; Site: left forearm; iw 14:30 Follow up: Response: No adverse reaction; Pain is decreased em 14:13 Drug: lidocaine 5% patch 1 patches {Note: right lower back.} Route: Topical; Site: em affected area; 17:10 Drug: NS 0.9% 1000 ml Route: IV; Rate: 100 ml/hr; Site: left forearm; iw 22:34 Follow up: Response: No adverse reaction; IV Status: Infusion continued upon transfer; jb4 IV Intake: 850ml 17:10 Drug: Zofran 4 mg Route: IVP; Site: left forearm; iw 17:30 Follow up: Response: No adverse reaction; Nausea is decreased em 20:40 Drug: Zofran 4 mg Route: IVP; Site: left forearm; jb4 21:11 Follow up: Response: No adverse reaction; Pain is decreased jb4 20:42 Drug: morphine 2 mg Route: IVP; Site: left forearm; jb4 21:11 Follow up: Response: No adverse reaction; Pain is decreased jb4 20:45 Drug: Flagyl 500 mg Volume: 100 ml; Route: IVPB; Rate: 200 ml/hr; Infused Over: 30 jb4 mins; Site: left forearm; 21:15 Follow up: Response: No adverse reaction; IV Status: Completed infusion; IV Intake: jb4 100ml 20:46 Drug: LevaQUIN 500 mg Volume: 100 ml; Route: IVPB; Infused Over: 60 mins; Site: left jb4 forearm; 21:46 Follow up: Response: No adverse reaction; IV Status: Completed infusion; IV Intake: jb4 100ml 22:00 Drug: morphine 2 mg Route: IVP; Site: left forearm; jb4 22:25 Follow up: Response: No adverse reaction; Pain is decreased jb4 Intake: 15:30 IV: 500ml; Total: 500ml. em 21:15 IV: 100ml; Total: 600ml. jb4 21:46 IV: 100ml; Total: 700ml. jb4 22:34 IV: 850ml; Total: 1550ml. jb4 Outcome: 16:57 ER care complete, transfer ordered by . pm1 22:00 Transferred to [facility]. jb4 22:00 Condition: stable 22:00 Discharge instructions given to patient, family, Instructed on the need for transfer, Demonstrated understanding of instructions. 22:35 Patient left the ED. jb4 Signatures: Dispatcher [employer] EDMS Emmett Camilo jb1 Sheila Mcdonald mr Ferraro, Efren, CHIEF DISPATCHER SERVICE CHIEF DISPATCHER SERVICE em Elidia Quintero RN RN iw Attema, Lee, RN RN la1 Hall, Patricia, RN RN ph Marinas, Patrick, JAIME SOFTWARE FIRMWARE ENGINEER pm1 Perry Guzman RN RN jb4 Olive Larson 2 Clara Thakkar Michelle 3 Corrections: (The following items were deleted from the chart) 15:19 14:00 BP 170 / 97; Pulse 88bpm; Resp 18bpm; Pulse Ox 97% RA; Pain 10/10; em em 15:20 14:00 BP 170 / 97; Pulse 88bpm; Resp 18bpm; Pulse Ox 97% 2 lpm Nasal Cannula; Pain em 10/10; em 21:16 21:00 BP 149 / 76; Pulse 88bpm; Resp 18bpm; Pulse Ox 96% 2 lpm Nasal Cannula; jb4 jb4
[2018-09-06] MEDS ORDERED: ONDANSETRON 4 MG/2 ML VIAL ONE ×2 (17:18→20:46)
[2018-09-06] MEDS ORDERED: NA CHLORIDE 0.9% 1,000 ML ONE (17:18)
[2018-09-06] MEDS ORDERED: METRONIDAZOLE 500mg IVPB 500 MG/100 ML BAG IV ONE (20:46)
[2018-09-06] MEDS ORDERED: Levofloxacin500mg IV 500 MG/100 ML BAG IV ONE (20:46)
[2018-09-06] MEDS ORDERED: MORPHINE 2 MG/ML SYR ONE (22:12)
== END 2018-09-06 22:35 ==
LOC: ER 12:48
DX: K85.10 Biliary acute pancreatitis without necrosis or infection (principal); I10 Essential (primary) hypertension; Z88.5 Allergy status to narcotic agent; Z88.0 Allergy status to penicillin
CPT/HCPCS: 96365; 96361; 87040; 85025; 80048; 36415; 80076; 83605; 83690; 84145; 74177; 76705; 96375; 99285; Q9967; J2550; J2270; J7030; J2405 ×2; 81003; 81015

== ENCOUNTER 2022-07-16 07:16 | Day surgery (SDC) | payer OTHER ==
[2022-07-16] MEDS ORDERED: FENTANYL CITR 100 MCG/2 ML ONE (07:35)
[2022-07-16] MEDS ORDERED: ROCURONIUM 50 MG/5 ML VIAL IV ONE (07:35)
[2022-07-16] MEDS ORDERED: propofoL 200 MG/20 ML VIAL IV ONE (07:35)
[2022-07-16] MEDS ORDERED: LIDOCAINE 2% MPF 5 ML VIAL ONE (07:36)
[2022-07-16] MEDS ORDERED: ONDANSETRON 4 MG/2 ML VIAL ONE (07:37)
[2022-07-16] MEDS ORDERED: SCOPOLAMINE HYDROBROMIDE PATCH TD ONE (07:45)
[2022-07-16] MEDS: Ringers Lactate 1,000 ML IV ONE ×3 (07:50→09:22)
[2022-07-16] MEDS ORDERED: LIDOCAINE HCL/EPINEPHRINE 20 ML MDV ONE (08:33)
[2022-07-16] MEDS ORDERED: NA CHLORIDE 0.9% 100 ML ONE (08:33)
[2022-07-16] MEDS ORDERED: CEFAZOLIN SODIUM 1 GM/VIAL ONE (08:33)
[2022-07-16] MEDS ORDERED: Ringers Lactate 1,000 ML IV ONE (08:33)
[2022-07-16] MEDS ORDERED: VASOPRESSIN 20 UNIT/ML VIAL ONE (08:34)
[2022-07-16] MEDS ORDERED: CEFAZOLIN SODIUM 2 GM/VIAL ONE (09:22)
[2022-07-16] MEDS ORDERED: dexAMETHasone 4 MG/ML VIAL ONE (09:52)
[2022-07-16] MEDS ORDERED: dexAMETHasone 10 MG/ML VIAL ONE (09:52)
[2022-07-16 13:05] VITALS: BP 125/58; TEMP 96.6; O2SAT 97
--- NOTE | 2022-07-16 16:57 | OP ---
Date of Procedure: 07/16/2022 Surgeon: Ayana Shepard MD Lunch Cook: No technology assistant. Preoperative Diagnoses: Incomplete bladder emptying, partial retention that has been improving, stat us post sling 3 weeks ago and urethral bulking. Postoperative Diagnoses: Incomplete bladder emptying, partial retention that has been improving, sta tus post sling 3 weeks ago and urethral bulking. Procedures Performed: 1.Urethrolysis, sling revision. 2.Urethral dilation and cystoscopy. Anesthesia: General with LMA. Specimens: No specimens. Complications: No complications. Drains: No drains. Patient's condition stable. Findings: Sling is not with the urethra and the mid urethral area laid flat without any cord-like st ringing. It was undermined on both sides both towards the vaginal epithelium and towards the bladder and urethra and released to the transobturator space on each side. It was then ejected in its tensi oning, so that there was at least over half a centimeter space between the urethra and the released 1 7-Colombian dilator in between the urethra and the sling in the mid urethral area. The mesh was laid fl at, made sure that it was not close to the bladder neck and closed. Edges were revised and closed. Cystoscopy was normal. No foreign body. Urethral dilation to 17 Colombian. Indication: Patient is an 81-year-old female with stress urinary incontinence. She was assessed cli nically, found to have a positive cough stress test, cleared for the surgery and had a mid urethral s ling and urethral bulking. At the voiding trial postoperatively as well as 5 days and 7 days, she continued to have significantl y high postvoid residual. I did not have any baseline urodynamics as she had no prolapse and stress incontinence was demonstrab le at the bedside. Intermittent self cath was taught to the patient and the daughter, initially had a catheter replaced 16-Colombian and despite not being able to empty in a week, then intermittent self c aths were taught and the daughter was helping her do it. At 2-1/2 weeks postop, the post capped void s were over 100 consistently. Urodynamics were done. Her bladder pressures were very low. She does not have any stress urinary incontinence. However, urinary retention that she feels is slightly mor e than what was preoperatively. So discussed about the options of observation versus urethrolysis an d urethral dilation. Patient wanted to proceed with this as she did not want to continue to do inter mittent self cath. The risk of recurrent stress urinary incontinence, the need for further revision if needed were all r eviewed with the patient. As she has recurrent DALY, then she would be a better candidate for urethra l bulking than a repeat sling. Description Of Procedure: After understanding and consenting for all of these procedures, she was br ought back to the OR, again with clearance, we went ahead. She was taken back to the OR. Ancef 2 g were given. SCDs were placed. Leg positioning was done bindu ropriately making sure that there was no significant external rotation or pressure on her hip with th e Ramón stirrups after general anesthesia was given. Vulva, vagina and perineum prepped and draped i n a sterile fashion. Luna was placed to drain the bladder left in place. Then the mid urethral are a was surveyed. The 3-0 Vicryl sutures were cut. The edges were opened up, revised the track of the sling on each side first towards the vaginal epithelium on both sides, then released the sling from under the urethra with the help of sharp tip Metzenbaum. Once this was done, then dissection was per formed with blunt-tipped Metzenbaum and blunt scissors underneath the sling towards the bladder all t he way to the transobturator space on both sides. Then, the sling was still completely flat, made jensen re that it was in the mid urethral position and with the help of a Summer clamp across the sling gentl y tugged on both sides for adjustment of the tension and once this was done, it was significantly loo sened with at least a 17-Colombian dilator in between the urethra and the sling. Irrigation was done. Edges were revised with Metzenbaum scissors and then closed with interrupted 3-0 Monocryl, 1 2-0 PDS SH needle suture was placed to relieve the tension and to help the edges stay intact but all the othe rs were Monocryl sutures. Luna was removed. Cystoscopy was performed with a 17-Colombian sheath, 30-degree lens, normal saline a fter dilating with 17-Colombian, then bladder was visualized. No evidence of any foreign body or trauma to the bladder or the urethra as I was exiting. Then the case was completed. After the procedure, she was recovered from anesthesia and taken to the PACU in a stable condition. Her sister and her daughter were debriefed about her procedure. She will have a voiding trial before she leaves. She was filled to 300 mL of normal saline. Luna removed, and we will do a voiding tri al before she is discharged. DANII Voice ID: [id number] Report ID: [id number]
== END 2022-07-16 12:05 | disposition home or self-care (01) ==
LOC: OR 07:16
PROVIDERS: ATTEND Obstetrics & Gynecology
PROC: 0T7D8ZZ Dilation of Urethra, Via Natural or Artificial Opening Endoscopic (ICD-10-PCS; 2022-07-16)
PROC: 0TND0ZZ Release Urethra, Open Approach (ICD-10-PCS; principal; 2022-07-16 08:30)
DX: R33.9 Retention of urine, unspecified (principal); N39.3 Stress incontinence (female) (male); N95.2 Postmenopausal atrophic vaginitis; I10 Essential (primary) hypertension; E78.5 Hyperlipidemia, unspecified; E03.9 Hypothyroidism, unspecified
CPT/HCPCS: 53500; 52281; 86900; 86850; 86901; J2704; J1100 ×2; J2001; J3010; J2405; J7120 ×2; J0690

== ENCOUNTER 2022-10-25 06:23 | Day surgery (SDC) | payer OTHER ==
--- NOTE | 2022-10-23 12:55 | EKG ---
Test Date: 2022-10-23 Test Time: 10:00:27 Tool Grinding Machine Operator: TYLER MEASUREMENT RESULTS: Intervals: Rate: 84 MN: 142 QRSD: 86 QT: 378 QTc: 446 [place]: P: 35 MN: 142 QRS: 27 T: 70 INTERPRETIVE STATEMENTS: Normal sinus rhythm Possible Left atrial enlargement Borderline ECG Compared to ECG 09/05/2018 23:03:07 No significant changes Electronically Signed On 10-23-22 12:55:13 CDT by Gurpreet Zelaya
[2022-10-25] MEDS ORDERED: Ringers Lactate 1,000 ML IV ONE (06:52)
[2022-10-25] MEDS ORDERED: propofoL 200 MG/20 ML VIAL IV ONE (07:08)
[2022-10-25] MEDS ORDERED: FENTANYL CITR 100 MCG/2 ML ONE (07:08)
[2022-10-25] MEDS ORDERED: LIDOCAINE 2% MPF 5 ML VIAL ONE (07:09)
[2022-10-25] MEDS ORDERED: MIDAZOLAM HCL 2 MG/2 ML INJ ONE (07:10)
[2022-10-25] MEDS ORDERED: ONDANSETRON 4 MG/2 ML VIAL ONE (07:10)
[2022-10-25] MEDS ORDERED: GLYCOPYRROLATE 0.2 MG/ML SYR ONE (07:11)
[2022-10-25] MEDS ORDERED: ROCURONIUM 50 MG/5 ML VIAL IV ONE (07:11)
[2022-10-25] MEDS ORDERED: NEOSTIGMINE 1 MG/ML -10 ML VIAL ONE (07:12)
[2022-10-25] MEDS ORDERED: SUCCINYLCHOLINE 20 MG/ML (10 ML) IV ONE (07:17)
[2022-10-25] MEDS ORDERED: EPINEPHRINE/PF 1 MG/ML AMP ONE (07:20)
[2022-10-25] MEDS ORDERED: LIDOCAINE HCL/EPINEPHRINE 20 ML MDV ONE (07:20)
[2022-10-25] MEDS ORDERED: NS 0.9% VIAL 20 ML ONE (07:23)
[2022-10-25] MEDS ORDERED: Xeomin 100 Unit Vial IM ONE (07:24)
[2022-10-25] MEDS ORDERED: SCOPOLAMINE HYDROBROMIDE PATCH TD ONE (07:34)
[2022-10-25] MEDS ORDERED: SILVER NITRATE 1 APPL TOP ONE ×2 (08:15→08:43)
--- NOTE | 2022-10-25 08:22 | P.OP ---
Boat Outboard Engine Mechanic: NONE,NONE Preoperative diagnosis: Dysphagia and chronic tongue ulcer Postoperative diagnosis: Same Primary procedure: Rigid esophagoscopy with submucosal injection of neuromodulator Secondary procedure: Biopsy anterior two thirds of tongue Anesthesia: General Estimated blood loss: 5 mL Specimen: Left tip of tongue ulcer Findings: Prominent cricopharyngeal bar, stable 4 mm left tip of tongue ulcer Operative Technique: After adequate plane of anesthesia, shoulder roll was placed and the neck was supported. Brief intraoral exam demonstrated chipping of the right central incisor prior to initiation of procedure. A rubber tooth guard was placed on the upper dentition. A pediatric rigid esophagoscope was passed through the oral cavity. During passage, the soft palate, uvula, posterior pharyngeal wall all appeared normal. The visualized portion of the base of tongue appeared normal. The tip of the epiglottis was visualized and appeared normal. The esophagoscope was passed towards the esophageal introitus. The vocal cords were not visualized. The esophagoscope was passed with care into the esophagus to its fullest extent. During slow withdrawal, there were no significant mucosal abnormalities visualized. The prominent cricopharyngeal bar was noted consistent with preoperative assessment and decision was made to proceed with planned injection. Xeomin botulinum toxin was reconstituted according to loader machine instructions using a 1.4 mL of preservative-free saline resulting in a concentration of 7 units per 0.1 mL. This was loaded into a side kick needle. A standard adult rigid esophagoscope was then used to repeat the esophagoscopy and positioned just above the cricopharyngeal bar. 4 aliquots of 0.1 mL Xeomin solution was injected along the width of the cricopharyngeus. A small amount of bleeding from the needle sticks was noted but there were no immediate complications. After injection and suctioning, the mucosa was carefully inspected and there was no evidence of perforation or mucosal laceration. The esophagoscope was slowly withdrawn and the oropharynx was suctioned. The oral tongue was then examined. Consistent with preoperative evaluation there was an approximate 3 to 4 mm ulceration on the left ventral tip of the tongue with appearance of granulation and a small surrounding area of leukoplakia. A large cup forcep was used to grasp the edge of the ulcerated area and a 15 blade scalpel was used to excise the lesion sharply. The specimen was sent to pathology for permanent section analysis. Direct pressure was applied to the biopsy site for several minutes to aid in hemostasis. The area surrounding the biopsy site was injected with approximately 1 mL of 1% lidocaine with epinephrine to aid in hemostasis and postoperative pain control. To aid in visualization and extrusion of the tongue, a 2-0 silk suture was placed in the midline tip of the tongue to aid with retraction. A pledget soaked with concentrated 1:1000 epinephrine was applied to the biopsy site with direct pressure. After several minutes, the area was inspected and noted to have very minimal bleeding at the mucosal edges. The biopsy site was treated with silver nitrate which resolved any additional oozing. The retracting suture was removed. The oral cavity was inspected. The oropharynx was suctioned and there was no additional bleeding noted. The procedure was concluded and the patient was returned to care of anesthesia for awakening and extubation in the operating room which proceeded without difficulty. The patient was transported to the recovery room in stable condition. All counts were noted correct by the nursing staff. Disposition: The patient will be discharged home later today and follow-up with Dr. Riddle as scheduled Complications: None Implants: None Fluids & blood products: See anesthesia record Transferred to: Recovery Room Condition: Good
[2022-10-25 09:46] VITALS: BP 124/69; TEMP 97; O2SAT 98
--- NOTE | 2022-10-28 12:19 | EKG ---
Test Date: 2022-10-23 Test Time: 09:59:53 Safety Investigator: TYLER MEASUREMENT RESULTS: Intervals: Rate: 85 AL: 140 QRSD: 84 QT: 370 QTc: 440 [place]: P: 40 AL: 140 QRS: 39 T: 87 INTERPRETIVE STATEMENTS: Normal sinus rhythm Possible Left atrial enlargement Nonspecific ST abnormality Abnormal ECG Compared to ECG 09/05/2018 23:03:07 ST (T wave) deviation now present Electronically Signed On 10-28-22 12:14:59 CDT by Gurpreet Zelaya
== END 2022-10-25 09:26 | disposition home or self-care (01) ==
LOC: OR 06:23
PROVIDERS: ATTEND Otolaryngology
PROC: 0CB7XZX Excision of Tongue, External Approach, Diagnostic (ICD-10-PCS; 2022-10-25)
PROC: 3E0D7GC Introduction of Other Therapeutic Substance into Mouth and Pharynx, Via Natural or Artificial Opening (ICD-10-PCS; principal; 2022-10-25 07:30)
DX: R13.10 Dysphagia, unspecified (principal); J39.2 Other diseases of pharynx; K12.1 Other forms of stomatitis; I10 Essential (primary) hypertension; E03.9 Hypothyroidism, unspecified; E78.2 Mixed hyperlipidemia
CPT/HCPCS: 93005; 88305; 43192; 41100; A4216; J2704; J2710; J0171; J2001; J2250; J3010; J2405; J0588; J7120